=== PATIENT | female | born 1990 | race Caucasian/White ===

== ENCOUNTER → 2021-03-04 | Outpatient (CLI) | payer MEDICAID ==
[2021-03-04 17:06] LABS: BASO # 0.01 (0.02-0.10); EOS # 0.15 (0.04-0.40); EOS % 2.4 % (1.0-5.0); HEMATOCRIT 32.4 % (37.0-47.0); HEMOGLOBIN 9.8 g/dL (12.5-16.0); LYMPH# 1.47 (1.50-4.00); MEAN CELL VOLUME 79 fl (78-100); MEAN CORPUSCULAR HEMOGLOBIN 24 pg (27-31); MEAN CORPUSCULAR HGB CONC 30 g/dL (33-37); MEAN PLATELET VOLUME 9.9 fl (7.4-10.4); MONO # 0.45 (0.20-0.80); NEU # 4.18 (1.40-6.50); PLATELET COUNT 232 K/mm3 (130-400); RED BLOOD COUNT 4.13 M/mm3 (4.10-5.30); RED CELL DISTRIBUTION WIDTH 16.9 % (11.5-14.5); WHITE BLOOD COUNT 6.3 K/mm3 (4.8-10.8)
[2021-03-04 17:10] LABS: ALBUMIN 3.9 g/dL (3.5-5.0); POTASSIUM 4.1 mmol/L (3.5-5.1)
[2021-03-04 17:11] LABS: CALCIUM 9.6 mg/dL (8.3-10.5)
[2021-03-04 17:13] LABS: TOTAL PROTEIN 6.9 g/dL (6.4-8.3)
[2021-03-04 17:14] LABS: TOTAL BILIRUBIN 0.3 mg/dL (0.2-1.2)
== END ==
LOC: LAB 16:43
PROVIDERS: Physician Assistant
DX: Z00.00 Encounter for general adult medical examination without abnormal findings (principal); Z13.220 Encounter for screening for lipoid disorders; Z83.3 Family history of diabetes mellitus; Z13.29 Encounter for screening for other suspected endocrine disorder; I10 Essential (primary) hypertension

== ENCOUNTER → 2021-05-26 | Outpatient (CLI) | payer MEDICAID | LOC: LAB 14:03 | DX: U07.1 COVID-19 (principal) ==

== ENCOUNTER → 2021-07-11 | Outpatient (CLI) | payer MEDICAID ==
[2021-07-11 12:59] LABS: URINE APPEARANCE HAZY; URINE BILIRUBIN NEGATIVE (NEGATIVE); URINE BLOOD 50 ery/uL (NEGATIVE); URINE COLOR YELLOW; URINE GLUCOSE NEGATIVE (NEGATIVE); URINE KETONE NEGATIVE (NEGATIVE); URINE LEUKOCYTE ESTERASE 1+ (NEGATIVE); URINE NITRATE POSITIVE (NEGATIVE); URINE PROTEIN(semi-quant) 1+ (NEGATIVE); URINE UROBILINOGEN NORMAL (NORMAL); URINE WBC 31-50 /hpf (0-3)
[2021-07-11 13:00] LABS: URINE MUCUS PRESENT (NOT PRESENT)
== END ==
LOC: LAB 12:11
PROVIDERS: Physician Assistant
DX: R30.9 Painful micturition, unspecified (principal)

== ENCOUNTER → 2021-07-22 | Outpatient (CLI) | payer MEDICAID | LOC: RAD 12:20 | DX: M25.511 Pain in right shoulder (principal); M54.2 Cervicalgia ==

== ENCOUNTER → 2022-07-09 | Outpatient (CLI) | payer MEDICAID ==
[~2022-07-09] MED LIST: BACTRIM DS TAB1 EACH PO; DESYREL50 MG; DICLOFENAC SODIUM3% TP; FEXOFENADINE HY60 MG PO; GABAPENTIN TAB600 MG PO; LYVISPAH5 MG PO; METOPROLOL TAR100 M1 PO; MONTELUKAS4 MG/Packe PO; TIZANIDINE HYDRO2 M1 PO
[2022-07-09 12:51] LABS: PH-URINE 5.5 (5.0 - 8.0); URINE APPEARANCE CLOUDY; URINE BILIRUBIN NEGATIVE (NEGATIVE); URINE COLOR LIGHT YELLOW; URINE GLUCOSE NEGATIVE (NEGATIVE); URINE KETONE NEGATIVE (NEGATIVE); URINE PROTEIN(semi-quant) TRACE (NEGATIVE)
[2022-07-09 12:52] LABS: URINE BLOOD NEGATIVE (NEGATIVE); URINE LEUKOCYTE ESTERASE 2+ (NEGATIVE); URINE NITRATE POSITIVE (NEGATIVE); URINE UROBILINOGEN NORMAL (NORMAL)
== END ==
LOC: LAB 11:37
PROVIDERS: Physician Assistant
DX: B37.0 Candidal stomatitis (principal); R35.0 Frequency of micturition; R10.9 Unspecified abdominal pain; R09.81 Nasal congestion